=== PATIENT | male | born 1980 | race Caucasian/White ===

== ENCOUNTER 2018-03-09 00:20 | Emergency (ER) | payer BC, OTHER ==
[2018-03-09] MEDS: ALBUTEROL 0.083% (NEB) 2.5 MG/3 ML AMP NEB (02:14)
[2018-03-09] MEDS: IPRATROPIUM (NEB) 0.5 MG/2.5 ML AMP NEB (02:14)
== END 2018-03-09 04:04 | disposition home or self-care (01) ==
LOC: FTE 00:20
DX: J45.901 Unspecified asthma with (acute) exacerbation (principal); J20.9 Acute bronchitis, unspecified
CPT/HCPCS: 94664; 99283-25